=== PATIENT | male | born 1995 | race Caucasian/White ===

== ENCOUNTER 2025-02-12 16:13 | Emergency (ER) | payer OTHER ==
[~2025-02-12] VITALS: Ht 180.3 cm; Wt 65.8 kg
[2025-02-12 16:20] VITALS: BP 128/78; TEMP 98.3
[2025-02-12] MEDS ORDERED: CEPH-570 PO (16:52)
[2025-02-12] MEDS ORDERED: TDAP [DIPH/PERTUSSIS/TET] 0.5 ML VIAL IM ONE (17:10)
[2025-02-12] MEDS: TDAP [DIPH/PERTUSSIS/TET] 0.5 ML VIAL IM ONE (17:12)
[2025-02-12 18:00] VITALS: O2SAT 100
== END 2025-02-12 18:00 | disposition home or self-care (01) ==
LOC: ER 16:23
DX: S81.031A Puncture wound without foreign body, right knee, initial encounter (principal); W45.0XXA Nail entering through skin, initial encounter; Y93.89 Activity, other specified; Y92.89 Other specified places as the place of occurrence of the external cause; Y99.9 Unspecified external cause status
CPT/HCPCS: 90715